=== PATIENT | female | born 1975 | race Caucasian/White ===

== ENCOUNTER 2017-08-25 18:05 | Emergency (ER) | payer MEDICARE, MEDICAID ==
[~2017-08-25] VITALS: Ht 162.6 cm; Wt 79.4 kg
[2017-08-25] MEDS ORDERED: QUET100T4 PO (18:47)
[2017-08-25] MEDS ORDERED: MIRT45TA3 PO (18:47)
[2017-08-25] MEDS ORDERED: QUET50TA5 PO (18:47)
[2017-08-25] MEDS ORDERED: RISP0.2519 PO (18:47)
[2017-08-25] MEDS ORDERED: PRAZ2CAP2 PO (18:47)
[2017-08-25] MEDS ORDERED: BUSP15TA PO (18:47)
[2017-08-25] MEDS ORDERED: MELO15TA23 PO (18:47)
[2017-08-25] MEDS ORDERED: HYDR25TA PO (18:47)
[2017-08-25] MEDS ORDERED: DEUT6TAB PO (18:47)
[2017-08-25] MEDS ORDERED: BUPR150T8 PO (18:47)
[2017-08-25] MEDS ORDERED: CETI10TA16 PO (18:47)
[2017-08-25] MEDS ORDERED: RANI150C PO (18:47)
[2017-08-25] MEDS ORDERED: GABA-587 PO (18:47)
[2017-08-25] MEDS ORDERED: ONDANSETRON PF 4 MG/2 ML VIAL. IV ONE (19:30)
[2017-08-25 19:33] LABS: BASO % 0 % (0-3); EOS % 1 % (0-3); HEMATOCRIT 33.3 % (36.0-47.0); HEMOGLOBIN 10.6 g/dL (12.0-15.5); LYMPH # 1.9 x10^3/uL (1.0-4.8); LYMPH % 20 % (24-48); MEAN CORPUSCULAR HEMOGLOBIN 25 pg (25-35); MEAN CORPUSCULAR HGB CONC 32 g/dL (31-37); MEAN CORPUSCULAR VOLUME 79 fL (79-100); MONO % 10 % (0-9); NEUT % 69 % (31-73); PLATELET COUNT 584 x10^3/uL (140-400); RED BLOOD COUNT 4.24 x10^6/uL (3.50-5.40); RED CELL DISTRIBUTION WIDTH 15.2 % (11.5-14.5); WHITE BLOOD COUNT 9.6 x10^3/uL (4.0-11.0)
[2017-08-25 19:51] LABS: CALCIUM 8.5 mg/dL (8.5-10.1); GFR 60.5; POTASSIUM 3.7 mmol/L (3.5-5.1)
[2017-08-25 19:56] LABS: ALBUMIN/GLOBULIN RATIO 0.5 (1.0-1.7); TOTAL BILIRUBIN 0.3 mg/dL (0.2-1.0); TOTAL PROTEIN 5.9 g/dL (6.4-8.2)
[2017-08-25 20:01] LABS: NEG OBC SER NEG; POS OBC SER POS
--- NOTE | 2017-08-25 20:24 | PHYS DOC ---
Past Medical History Past Medical History: Anxiety, Arthritis, Bipolar, Depression, GERD, Other Additional Past Medical Histor: chronic low back pain, hx IV drug abuse Past Surgical History: Tubal ligation, Other Additional Past Surgical Histo: bilat carpal tunnel release Additional Information: 1pack every 4-5 days Drug Use: Methamphetamine, Other Social History Narrative: sober x 1 year from IV meth use Adult General Chief Complaint Chief Complaint: NAUSEA/VOMITING/DIARRHA HPI HPI Patient is a 42 year old female with extensive psychiatric illness who presents with nausea and vomiting and midepigastric pain starting last night. Patient denies diarrhea. No fever chills or sweats. Patient reports increased anxiety. States she is not unable to eat today. Due to nausea. No hematemesis coffee-ground emesis or bilious emesis. Patient attributes nausea to newly medication Asteudo, which she takes for tardive dyskinesia. No other acute symptoms or complaints No prior abdominal surgeries.[] Review of Systems Review of Systems Review symptoms as per history of present illness. All other review symptoms are negative. Current Medications Current Medications Current Medications Medications (Trade) Dose Ordered Sig/Franci Start Time Stop Time Status Last Admin Dose Admin Haloperidol Lactate (Haldol) 2.5 mg 1X ONCE 08/25/17 20:45 08/25/17 20:46 DC Ondansetron HCl (Zofran) 8 mg 1X ONCE 08/25/17 19:30 08/25/17 19:31 DC 08/25/17 19:42 8 MG Sodium Chloride 1,000 ml @ 1,000 mls/hr 1X ONCE 08/25/17 20:30 08/25/17 21:29 Allergies Allergies Allergies Coded Allergies Type Severity Reaction Last Updated Verified No Known Drug Allergies 08/25/17 No Physical Exam Physical Exam Constitutional: Well developed, anxious. [] HENT: Normocephalic, atraumatic, bilateral external ears normal, oropharynx moistl. [] Eyes: PERRLA, EOMI, conjunctiva normal, no discharge. [] Neck: Normal range of motion, no tenderness, supple, no stridor. [] Cardiovascular:Heart rate regular rhythm, no murmur [] Lungs & Thorax: Bilateral breath sounds clear to auscultation [] Abdomen: Bowel sounds normal, soft, mid epigastric pain, tenderness.. [] Skin: Warm, dry, no erythema, no rash. [] Back: No tenderness. [] Extremities: No tenderness, no cyanosis, no clubbing, ROM intact, no edema. [] Neurologic: Alert and oriented X 3, normal motor function, normal sensory function, no focal deficits noted. [] Psychologic: Affect, anxious, no SI or HI. [] Current Patient Data Vital Signs Vital Signs Date Time Temp Pulse Resp B/P (MAP) Pulse Ox O2 Delivery O2 Flow Rate FiO2 08/25/17 19:44 103 22 103/67 (79) 97 08/25/17 18:21 98.1 Room Air 98.1 Lab Values Laboratory Tests Test 08/25/17 18:47 White Blood Count 9.6 x10^3/uL (4.0-11.0) Red Blood Count 4.24 x10^6/uL (3.50-5.40) Hemoglobin 10.6 g/dL (12.0-15.5) L Hematocrit 33.3 % (36.0-47.0) L Mean Corpuscular Volume 79 fL (79-100) Mean Corpuscular Hemoglobin 25 pg (25-35) Mean Corpuscular Hemoglobin Concent 32 g/dL (31-37) Red Cell Distribution Width 15.2 % (11.5-14.5) H Platelet Count 584 x10^3/uL (140-400) H Neutrophils (%) (Auto) 69 % (31-73) Lymphocytes (%) (Auto) 20 % (24-48) L Monocytes (%) (Auto) 10 % (0-9) H Eosinophils (%) (Auto) 1 % (0-3) Basophils (%) (Auto) 0 % (0-3) Neutrophils # (Auto) 6.6 x10^3uL (1.8-7.7) Lymphocytes # (Auto) 1.9 x10^3/uL (1.0-4.8) Monocytes # (Auto) 1.0 x10^3/uL (0.0-1.1) Eosinophils # (Auto) 0.0 x10^3/uL (0.0-0.7) Basophils # (Auto) 0.0 x10^3/uL (0.0-0.2) Sodium Level 136 mmol/L (136-145) Potassium Level 3.7 mmol/L (3.5-5.1) Chloride Level 101 mmol/L (98-107) Carbon Dioxide Level 24 mmol/L (21-32) Anion Gap 11 (6-14) Blood Urea Nitrogen 29 mg/dL (7-20) H Creatinine 1.0 mg/dL (0.6-1.0) Estimated GFR (Cockcroft-Gault) 60.5 BUN/Creatinine Ratio 29 (6-20) H Glucose Level 121 mg/dL (70-99) H Calcium Level 8.5 mg/dL (8.5-10.1) Total Bilirubin 0.3 mg/dL (0.2-1.0) Aspartate Amino Transferase (AST) 13 U/L (15-37) L Alanine Aminotransferase (ALT) 12 U/L (14-59) L Alkaline Phosphatase 156 U/L (46-116) H Total Protein 5.9 g/dL (6.4-8.2) L Albumin 2.0 g/dL (3.4-5.0) L Albumin/Globulin Ratio 0.5 (1.0-1.7) L Lipase 72 U/L (73-393) L Serum Test, Qualitative Negative (NEG) Laboratory Tests 08/25/17 18:47 Laboratory Tests 08/25/17 18:47 EKG EKG ] Radiology/Procedures Radiology/Procedures [CT abdomen pelvis: Pending] Course & Med Decision Making Course & Med Decision Making Pertinent Labs and Imaging studies reviewed. (See chart for details) [Patient with acute onset abdominal pain nausea and vomiting. IV fluids and antiemetics given with limited improvement. Lab work reviewed. CT abdomen and pelvis ordered and are pending at time of shift change. Care endorsed to [facility] at 2100 for results and disposition. ] Dragon Disclaimer Dragon Disclaimer This electronic medical record was generated, in whole or in part, using a voice recognition dictation system. Departure Departure Impression: Primary Impression: Abdominal pain Referrals: NO PCP (PCP) FAREED PATEL DO Aug 25, 2017 20:24
[2017-08-25] MEDS ORDERED: IV NORMAL SALINE 1000ML BAG 1,000 ML IV ONE (20:30)
[2017-08-25] MEDS ORDERED: HALOPERIDOL LACTATE 5 MG/ML VIAL. IVP ONE (20:45)
[2017-08-25 20:53] VITALS: BP 104/62
[2017-08-25] MEDS ORDERED: IOHEXOL 300 MG/ML 75 ML VIAL IV ONE (21:00)
[2017-08-25] MEDS ORDERED: CONTRAST GIVEN MC PRN (21:15)
--- NOTE | 2017-08-25 22:13 | RAD ---
CT scan of the abdomen and pelvis with contrast 08/25/2017 CLINICAL HISTORY: Abdominal pain with nausea vomiting and diarrhea. TECHNIQUE: After the intravenous administration of 75 cc of Omnipaque 300, contiguous, 5 mm axial sections were obtained through the abdomen and pelvis. One or more of the following individualized dose reduction techniques were utilized for this study: 1. Automated exposure control. 2. Adjustment of the mA and/or kV according to patient size. 3. Use of iterative reconstruction technique. FINDINGS: Images through the lung bases demonstrate minimal dependent subsegmental atelectasis bilaterally. A 4.6 cm fluid attenuation lesion is seen in the right heart border, posteriorly which likely represents an epicardial cyst. The liver, spleen, pancreas, adrenal glands and kidneys are within normal limits. The abdominal aorta tapers normally. The gallbladder is well-distended. No free fluid or free air is seen within the abdomen. Mildly dilated fluid-filled small bowel loops are seen throughout the abdomen without definite evidence of bowel obstruction. Mild enhancement and small bowel wall thickening is seen involving the ileum which could reflect an ileitis. No abnormal fluid collection is seen to suggest evidence of an abscess. The appendix is not visualized. No inflammatory changes are seen surrounding the cecum. Images through the pelvis demonstrate the urinary bladder distended with urine. Small to moderate amount of free fluid is seen within the pelvis. Calcifications are seen within the pelvis consistent with phleboliths. Minimal S-shaped curvature of the thoracolumbar spine is noted. IMPRESSION: Mildly dilated fluid-filled small bowel loops are seen throughout the abdomen without definite evidence of bowel obstruction. Mild enhancement and wall thickening is seen involving the ileum which could reflect an ileitis. No abscess is seen. [id number] amount free fluid is seen within the pelvis. Electronically signed by: Rock Lane MD (08/25/2017 10:10 PM) [facility]
--- NOTE | 2017-08-26 08:33 | EKG ---
[facility] [address] [place] [address] Test Date: 2017-08-25 Test Time: 18:30:16 Pat Name: JUSTO SLATER Department: Room: Gender: F Senior Clinical Research Associate: : 1975 Requested By: TONIE SAHNI Order Number: [id number] Reading MD: Chantell Mcgregor Measurements Intervals [place] Rate: 115 P: -144 [place]: 66 QRS: 34 QRSD: 72 T: 50 QT: 342 QTc: 475 Interpretive Statements SINUS RHYTHM QRS(T) CONTOUR ABNORMALITY CONSISTENT WITH ANTEROSEPTAL INFARCT AGE UNDETERMINED Electronically Signed On 08-26-2017 19:53:06 CDT by Chantell Mcgregor
== END 2017-08-25 23:20 | disposition home or self-care (01) ==
LOC: ER 18:05
DX: R11.2 Nausea with vomiting, unspecified (principal); R10.13 Epigastric pain; F31.9 Bipolar disorder, unspecified; K21.9 Gastro-esophageal reflux disease without esophagitis; G89.29 Other chronic pain; M19.90 Unspecified osteoarthritis, unspecified site; Z98.51 Tubal ligation status; F17.200 Nicotine dependence, unspecified, uncomplicated
CPT/HCPCS: 36415; 74177; 80053; 83690; 84703; 85025; 93005; 96361; 96374; 96375; 99285; J1630; J2405; J7030; Q9967